=== PATIENT | female | born 1945 | race Caucasian/White ===

== ENCOUNTER → 2016-07-03 | Outpatient (CLI) | payer MEDICARE, OTHER | LOC: MAMO 05-21 10:18 | DX: Z12.31 Encounter for screening mammogram for malignant neoplasm of breast (principal) | CPT/HCPCS: G0202 ==

== ENCOUNTER → 2021-08-08 | Outpatient (CLI) | payer MEDICARE, OTHER ==
[~2021-08-08] MED LIST: BACTROBAN OINT22 GM EXT; CLEOCIN HCL300 MG PO; KEFLEX CAP 500500 MG PO; OMNICEF 300 MG300 MG PO; VIBRAMYCIN100 MG PO; ZITHROMAX250 MG PO
== END ==
LOC: MAMO 08:30
DX: Z12.31 Encounter for screening mammogram for malignant neoplasm of breast (principal); Z98.82 Breast implant status; M81.0 Age-related osteoporosis without current pathological fracture
CPT/HCPCS: 77063; 77067; 77080